=== PATIENT | female | born 1985 | race Caucasian/White ===

== ENCOUNTER → 2020-05-06 | Outpatient (CLI) | payer BC ==
[~2020-05-06] MED LIST: CATHETER FLUSH 10 ML SYR IV PRN; HOLD METFORMIN - RECEIVED CONTRAST 20 ML VIAL IV SCH; IOHEXOL 350 MG/ML 100 ML (OMNIPAQUE 350) VIAL IV ONE; NS 100 ML (IVPB) BAG IV ONE
--- NOTE | 2020-05-06 12:46 | Diagnostic Imaging Report ---
PROCEDURE: CT abdomen and pelvis with contrast. TECHNIQUE: Multiple contiguous axial images were obtained through the abdomen and pelvis after administration of intravenous contrast. Auto Exposure Controls were utilized during the CT exam to meet ALARA standards for radiation dose reduction. All CT scans use one or more of the following dose optimizing techniques: automated exposure control, MA and/or KvP adjustment based on patient size and exam type or iterative reconstruction. INDICATION: Abdominal pain, hiatal hernia FINDINGS: There is a herndon colonic elevated fecal load consistent with constipation but no focal impaction or obstruction. No bowel wall thickening. No pericolonic or perienteric edema. No focal inflammatory changes. Liver, gallbladder, bile ducts, spleen, adrenals and pancreas negative. The unobstructed kidneys normal. There is no appendicitis or diverticulitis. There is likely an involuting follicle in the right ovary with minute free fluid in the cul-de-sac. Urinary bladder unremarkable. There were no findings of hiatal hernia at this exam. Lower thoracic esophagus, lung bases and basilar pleural appeared normal. IMPRESSION: Colonic constipation and likely physiologic involuting right ovarian follicle with trace likely physiologic pelvic free fluid. Dictated by: Dictated on workstation # [id number]
== END ==
LOC: RAD 12:45
PROVIDERS: ATTEND Surgery
DX: K59.00 Constipation, unspecified (principal); K44.9 Diaphragmatic hernia without obstruction or gangrene
CPT/HCPCS: 74177